=== PATIENT | male | born 1950 | race Caucasian/White ===

== ENCOUNTER → 2017-09-08 | Outpatient (CLI) | payer MEDICARE, BC | END | disposition home or self-care (01) | LOC: LAB 11:02 | PROVIDERS: ATTEND Surgery | DX: E04.2 Nontoxic multinodular goiter (principal) | CPT/HCPCS: 36415; 82310 ==

== ENCOUNTER 2020-04-29 11:59 | Emergency (ER) | payer OTHER, MEDICARE, BC ==
[~2020-04-29] VITALS: Ht 180.3 cm; Wt 81.0 kg
[2020-04-29 12:05] VITALS: BP 163/104
[2020-04-29] MEDS ORDERED: ACETAMINOPHEN 500 MG TABLET PO ONE ×2 (12:15→12:23)
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
--- NOTE | 2020-04-29 12:35 | RAD ---
EXAM: Right ankle, 3 views; left wrist, 3 views. HISTORY: Pain. COMPARISON: None. FINDINGS: Right ankle: 3 views of the right ankle are obtained. There is no fracture, dislocation or subluxation. There is no osteochondral lesion. There is a small plantar spur. There is mild tibiotalar spurring. Left wrist: 3 views of the left wrist are obtained. There is severe first, metacarpal joint space narrowing with subchondral sclerosis, spurring and bony remodeling. No convincing acute fracture is seen. There is a small osseous excrescence along the ulnar aspect of the distal ulnar metaphysis and linear sclerosis within the distal ulnar metaphysis which may be due to the sequela of remote injury. There is a 2 mm radiodense foreign body at the base of the thumb soft tissues. IMPRESSION: 1. No acute osseous finding. 2. Small plantar spur. 3. 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 3. Slight cortical irregularly and linear lucency within the distal ulnar metaphysis, possibly due to sequela of remote injury. This does not appear to be acute. Electronically signed by: Sulema Lopez MD (04/29/2020 12:31 PM) [id number]
[2020-04-29] MEDS ORDERED: ORPH-16 PO (12:47)
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
== END 2020-04-29 14:02 | disposition home or self-care (01) ==
LOC: ER 11:59
DX: S93.401A Sprain of unspecified ligament of right ankle, initial encounter (principal); S63.502A Unspecified sprain of left wrist, initial encounter; S20.219A Contusion of unspecified front wall of thorax, initial encounter; M19.90 Unspecified osteoarthritis, unspecified site; I25.10 Atherosclerotic heart disease of native coronary artery without angina pectoris; E78.00 Pure hypercholesterolemia, unspecified; I10 Essential (primary) hypertension; Z87.891 Personal history of nicotine dependence; Z88.5 Allergy status to narcotic agent; V43.52XA Car driver injured in collision with other type car in traffic accident, initial encounter; Y93.I9 Activity, other involving external motion; Y92.89 Other specified places as the place of occurrence of the external cause; Y99.8 Other external cause status
CPT/HCPCS: 71046; 73110; 73610; 99284